=== PATIENT | male | born 1965 | race Caucasian/White ===

== ENCOUNTER 2020-02-15 11:32 | Emergency (ER) | payer MEDICARE ==
[~2020-02-15] VITALS: Ht 172.7 cm; Wt 100.0 kg
[2020-02-15] MEDS ORDERED: CHLORTHALIDONE25 MG PO (15:38)
[2020-02-15] MEDS ORDERED: NORCO1 TA2 PO (15:38)
[2020-02-15] MEDS ORDERED: TOPIRAMATE25 MG PO (15:39)
[2020-02-15] MEDS ORDERED: LORAZEPAM0.5 MG PO (15:40)
[2020-02-15] MEDS ORDERED: PREDNISONE20 MG PO (15:41)
[2020-02-15] MEDS ORDERED: ZOFRAN4 MG/TAB PO (15:41)
[2020-02-15 15:55] LABS: HEMATOCRIT 54.7 % (39.0-50.0); HEMOGLOBIN 19.5 g/dl (14.0-18.0); IMMATURE GRANULOCYTES 0.3 % (0.0-5.0); MEAN CELL VOLUME 87.2 fL CALC (80.0-100.0); MEAN CORPUSCULAR HGB 31.1 pG CALC (26.0-32.0); MEAN CORPUSCULAR HGB CONC 35.6 g/dL CAL (32.0-36.0); NEUT# 8.1 thou/uL (1.82-7.42); RED BLOOD COUNT 6.27 mill/uL (4.70-6.10); RED CELL DISTRI WIDTH 12.1 % (11.5-15.5)
[2020-02-15 16:12] LABS: ALBUMIN 5.1 g/dL (3.2-5.0); ALKALINE PHOSPHATASE 164 u/l (38-126); AMYLASE 54 u/l (30-110); ANION GAP 18 (6-22 (CALC)); BILIRUBIN, TOTAL 1.5 mg/dL (0.0-1.4); BUN 25 mg/dL (9-20); BUN/CREATININE RATIO 24 (12-20 (CALC)); CARBON DIOXIDE 25 mmol/l (22-30); CHLORIDE 95 mmol/l (95-108); CREATININE 1.1 mg/dL (0.7-1.3); GFR > 60 ML/MIN (>=60 (CALC)); GFR FOR AFR.AMER. > 60 ML/MIN (>=60 (CALC)); LIPASE 256 u/l (23-300); POTASSIUM 2.9 mmol/l (3.5-5.1); SGOT/AST 65 u/l (17-59); SODIUM 136 mmol/l (137-146)
[2020-02-15 18:17] LABS: URINE BILIRUBIN - DIPSTICK NEGATIVE (NEGATIVE); URINE BLOOD DIPSTICK TRACE-INTACT (NEGATIVE); URINE COLOR YELLOW; URINE GLUCOSE - DIPSTICK NEGATIVE (NEGATIVE); URINE KETONE 15 mg/dL (NEGATIVE); URINE LEUK ESTERASE NEGATIVE (NEGATIVE); URINE NITRITE - DIPSTICK NEGATIVE (Negative); URINE PH 6.5 (4.5-8.0); URINE PROTEIN - DIPSTICK NEGATIVE (NEG-TRACE); URINE UROBILINOGEN - DIPSTICK 0.2 E.U./dL (0.2)
[2020-02-15 19:12] VITALS: BP 128/92
== END 2020-02-15 19:12 | disposition home or self-care (01) ==
LOC: ED 11:32
DX: R10.12 Left upper quadrant pain (principal); R10.32 Left lower quadrant pain; E11.9 Type 2 diabetes mellitus without complications; I10 Essential (primary) hypertension; K76.0 Fatty (change of) liver, not elsewhere classified; R25.1 Tremor, unspecified; Z79.52 Long term (current) use of systemic steroids; Z79.899 Other long term (current) drug therapy
CPT/HCPCS: Q9967